=== PATIENT | female | born 1995 | race Caucasian/White ===

== ENCOUNTER 2020-05-16 17:44 | Emergency (ER) | payer MEDICAID | END 2020-05-16 17:45 | disposition left against medical advice (07) | LOC: EDH 17:44 | DX: Z53.21 Procedure and treatment not carried out due to patient leaving prior to being seen by health care provider (principal) ==

== ENCOUNTER 2020-05-20 23:31 | Emergency (ER) | payer MEDICAID ==
[2020-05-21 01:05] LABS: BASOPHILS % (AUTO) 0.2 % (0.0-5.0); EOSINOPHILS % (AUTO) 1.6 % (0.0-8.0); LYMPHOCYTES % (AUTO) 41.1 % (21.0-51.0); MEAN CORPUSCULAR HEMOGLOBIN 24.4 pg (27.0-33.0); MEAN CORPUSCULAR HGB CONC 31.3 g/dL (32.0-36.0); MEAN CORPUSCULAR VOLUME 78.1 fL (79-99); MONOCYTES % (AUTO) 5.4 % (3.0-13.0); NEUTROPHILS % (AUTO) 51.5 % (40.0-77.0); PLATELET COUNT (AUTO) 374 K/uL (130-400); RED BLOOD CELL COUNT(AUTO) 3.97 MIL/uL (4.00-5.50); WHITE BLOOD COUNT (AUTO) 8.2 K/uL (4.8-10.8)
[2020-05-21] MEDS ORDERED: VANCOMYCIN 1GM+NS 250ML 250 ML IV ONE (01:10)
[2020-05-21] MEDS ORDERED: ZOSYN 3.375GM+NS 50ML 50 ML IV ONE (01:10)
[2020-05-21] MEDS ORDERED: HYDROMORPHONE 1 MG/1 ML AMP ONE ×2 (01:10→01:54)
[2020-05-21 01:26] LABS: CREATININE 0.6 mg/dL (0.5-1.5)
[2020-05-21 01:29] LABS: ALBUMIN 3.3 g/dL (3.5-5.0); BILIRUBIN,TOTAL 0.4 mg/dL (0.2-1.0); TOTAL PROTEIN, SERUM 7.2 g/dL (6.0-8.3)
[2020-05-21 01:36] LABS: PLATELET MORPHOLOGY LARGE PLTS PRESENT
[2020-05-21] MEDS ORDERED: HYDROCODONE/ACETAMINOPHEN 5/325 MG TAB ONE (01:54)
== END 2020-05-21 02:57 | disposition home or self-care (01) ==
LOC: EDH 23:31
DX: L08.9 Local infection of the skin and subcutaneous tissue, unspecified (principal); J45.909 Unspecified asthma, uncomplicated; E03.9 Hypothyroidism, unspecified; Z88.1 Allergy status to other antibiotic agents
CPT/HCPCS: 36415; 80053; 83605; 85025; 87040; 96365; 96367; 96375; 99284; J1170 ×2; J2543; J3370

== ENCOUNTER 2020-05-22 14:04 | Emergency (ER) | payer MEDICAID | END 2020-05-22 16:20 | disposition left against medical advice (07) | LOC: EDH 14:04 | DX: M79.604 Pain in right leg (principal); J45.909 Unspecified asthma, uncomplicated; E03.9 Hypothyroidism, unspecified; Z88.1 Allergy status to other antibiotic agents; Z53.21 Procedure and treatment not carried out due to patient leaving prior to being seen by health care provider | CPT/HCPCS: 93005 ==

== ENCOUNTER 2023-04-17 10:41 | Inpatient (IN) | payer MEDICAID ==
[~2023-04-17] VITALS: Ht 167.6 cm; Wt 166.8 kg
[~2023-04-17 10:41] MED LIST: AMMO385C4 TP; CARV3.1262 PO; DULO30CA2 PO; FLUC150T48 PO; GABA300C PO; LEVO750T39 PO; LOSA25TA41 PO; Terbinafine Hcl TP
[2023-04-17 11:47] LABS: BASOPHILS # (AUTO) 0.06 K/uL (0.00-0.20); BASOPHILS % (AUTO) 0.3 % (0.0-5.0); HEMATOCRIT 33.6 % (36-48); IMMATURE GRANULOCYTE ABSOLUTE 0.13 K/uL (0-1); LYMPHOCYTES # (AUTO) 2.5 K/uL (1.0-4.8); LYMPHOCYTES % (AUTO) 11.9 % (21.0-51.0); MEAN CORPUSCULAR HEMOGLOBIN 28.6 pg (27.0-33.0); MEAN CORPUSCULAR HGB CONC 33.3 g/dL (32.0-36.0); MEAN CORPUSCULAR VOLUME 85.9 fL (79-99); MONOCYTES # (AUTO) 0.5 K/uL (0.1-1.0); MONOCYTES % (AUTO) 2.5 % (3.0-13.0); NEUTROPHILS # (AUTO) 17.7 K/uL (1.8-7.7); NEUTROPHILS % (AUTO) 84.7 % (40.0-77.0); PLATELET COUNT (AUTO) 330 K/uL (130-400); RED BLOOD CELL COUNT(AUTO) 3.91 MIL/uL (4.00-5.50); RED CELL DISTRIBUTION WIDTH 14.7 % (11.0-15.5); WHITE BLOOD COUNT (AUTO) 20.9 K/uL (4.8-10.8)
[2023-04-17] MEDS ORDERED: 0.9%NACL 1000ML 1,000 ML IV ONE (12:00)
[2023-04-17] MEDS ORDERED: ONDANSETRON 4MG INJ IVP ONE ×3 (12:00→14:30)
[2023-04-17 12:05] LABS: ALBUMIN 3.1 g/dL (3.5-5.0); BILIRUBIN,TOTAL 2.6 mg/dL (0.2-1.0); CREATININE 1.2 mg/dL (0.5-1.5); TOTAL PROTEIN, SERUM 7.5 g/dL (6.0-8.3)
[2023-04-17 12:38] LABS: POTASSIUM 2.8 mmol/L (3.5-5.1)
[2023-04-17] MEDS ORDERED: POTASSIUM CHLORIDE 20MEQ/100ML 100 ML IV ONE (14:00)
[2023-04-17] MEDS ORDERED: ZOSYN 3.375GM +NS 50ML IV ONE (14:00)
[2023-04-17] MEDS ORDERED: MORPHINE 4 MG SYG IM ONE (14:00)
[2023-04-17] MEDS ORDERED: VANCOMYCIN KIT 1 GM/250 ML IV.KIT IV ONE (14:00)
[2023-04-17] MEDS ORDERED: MORPHINE 4 MG SYG IVP ONE (14:30)
[2023-04-17] MEDS ORDERED: NACL 0.9% IV ONE (15:00)
[2023-04-17] MEDS ORDERED: VANCOMYCIN PROTOCOL PER PHARMACY IV SCH (15:00)
[2023-04-17] MEDS ORDERED: VANCOMYCIN IV ONE (15:00)
[2023-04-17] MEDS ORDERED: KCL 20 MEQ ERTAB PO ONE (15:30)
[2023-04-17] MEDS ORDERED: LIDOCAINE HCL 1% 20 ML VIAL ONE (15:37)
[2023-04-17] MEDS: ONDANSETRON 4MG INJ IVP PRN ×2 (16:07→22:04)
[2023-04-17] MEDS: 0.9%NACL 1000ML 1,000 ML IV SCH (16:37)
[2023-04-17] MEDS: MORPHINE 2 MG SYG IVP PRN (18:53)
[2023-04-17] MEDS: ACETAMINOPHEN 500 MG TABLET PO PRN (22:05)
[2023-04-17] MEDS ORDERED: 0.9%NACL 50ML IV SCH (22:30)
[2023-04-17] MEDS ORDERED: ZOSYN 3.375GM +NS 50ML IVPB SCH (22:30)
[2023-04-17 22:51] LABS: APPEARANCE,URINE CLOUDY (CLEAR); BILIRUBIN,URINE NEGATIVE (NEGATIVE); COLOR,URINE YELLOW (YELLOW); GLUCOSE, URINE (UA) NEGATIVE (NEGATIVE); KETONES,URINE NEGATIVE (NEGATIVE); LEUKOCYTE ESTERASE ,URINE 25 Leu/uL (NEGATIVE); NITRATE,URINE NEGATIVE (NEGATIVE); OCCULT BLOOD,URINE NEGATIVE (NEGATIVE); PH,URINE 5.5 (5.0-8.0); PROTEIN,URINE 30 mg/dL (NEGATIVE); UROBILINOGEN,URINE 0.2 mg/dL (0.2-1.0)
[2023-04-17 22:53] LABS: ADD UA MICROSCOPIC YES
[2023-04-17 22:54] LABS: BACTERIA,URINE RARE /HPF (None Seen); HCG,QUALITATIVE URINE NEGATIVE (NEGATIVE); MUCUS,URINE RARE LPF (None Seen); SQUAMOUS EPITHELIAL CELL,UR MANY /HPF (0-2); UNCLASSIFIED CRYSTAL 1 /HPF (None Seen)
[2023-04-17 23:15] VITALS: TEMP 102.7
[2023-04-17] MEDS ORDERED: KETOROLAC 30MG VIAL (30MG/ML) IVP ONE (23:30)
[2023-04-17] MEDS ORDERED: MORPHINE 2 MG SYG IVP ONE (23:30)
[2023-04-18] MEDS: 0.9%NACL 1000ML 1,000 ML IV SCH ×2 (00:51→13:32)
[2023-04-18] MEDS: MORPHINE 2 MG SYG IVP PRN ×3 (05:30→23:24)
[2023-04-18] MEDS ORDERED: VANCOMYCIN 1.5 GM/250 ML BAG 250 ML IV SCH (06:00)
[2023-04-18] MEDS: ONDANSETRON 4MG INJ IVP PRN ×2 (07:05→10:14)
[2023-04-18 07:21] LABS: BASOPHILS # (AUTO) 0.05 K/uL (0.00-0.20); BASOPHILS % (AUTO) 0.3 % (0.0-5.0); EOSINOPHILS # (AUTO) 0.04 K/uL (0.00-0.70); EOSINOPHILS % (AUTO) 0.2 % (0.0-8.0); HEMATOCRIT 31.3 % (36-48); IMMATURE GRANULOCYTE ABSOLUTE 0.09 K/uL (0-1); LYMPHOCYTES # (AUTO) 2.1 K/uL (1.0-4.8); LYMPHOCYTES % (AUTO) 11.4 % (21.0-51.0); MEAN CORPUSCULAR HGB CONC 31.9 g/dL (32.0-36.0); MEAN CORPUSCULAR VOLUME 87.7 fL (79-99); MONOCYTES # (AUTO) 0.6 K/uL (0.1-1.0); MONOCYTES % (AUTO) 3.3 % (3.0-13.0); NEUTROPHILS # (AUTO) 15.3 K/uL (1.8-7.7); NEUTROPHILS % (AUTO) 84.3 % (40.0-77.0); PLATELET COUNT (AUTO) 328 K/uL (130-400); RED BLOOD CELL COUNT(AUTO) 3.57 MIL/uL (4.00-5.50); RED CELL DISTRIBUTION WIDTH 14.6 % (11.0-15.5); WHITE BLOOD COUNT (AUTO) 18.2 K/uL (4.8-10.8)
[2023-04-18 07:25] LABS: MAGNESIUM 1.5 mg/dL (1.80-2.40); POTASSIUM 3.1 mmol/L (3.5-5.1)
[2023-04-18] MEDS ORDERED: KCL 20 MEQ ERTAB PO ONE (08:00)
[2023-04-18] MEDS ORDERED: MAGNESIUM 2GM PREMIX 50ML 50 ML IV PRN (08:30)
[2023-04-18 08:36] LABS: INR 1.08 (0.85-1.15); PROTHROMBIN TIME 12.5 SEC (9.6-11.6)
[2023-04-18 08:37] LABS: PARTIAL THROMBOPLASTIN TIME 35.2 SEC (26.3-35.5)
[2023-04-18] MEDS: ENOXAPARIN SODIUM 40 MG/0.4 ML SYRINGE SQ SCH (09:47)
[2023-04-18] MEDS: LINEZOLID 600 MG/ISO-OSM 300 ML IV SCH ×2 (10:00→23:23)
[2023-04-18] MEDS: CEFEPIME HCL 1 GM VIAL IVPB SCH ×2 (11:58→23:22)
[2023-04-18] MEDS ORDERED: HYDR4 PO (12:29)
[2023-04-18] MEDS: PROMETHAZINE HCL 25 MG/ML 1ML AMPULE IM PRN (13:32)
[2023-04-18 14:01] LABS: CREATININE,URINE RANDOM 174 mg/dL (30-135); SODIUM,URINE RANDOM 43 mmol/l (40-220)
[2023-04-18 15:29] LABS: ALBUMIN 2.5 g/dL (3.5-5.0); BILIRUBIN,DIRECT 0.3 mg/dL (0.0-0.3); BILIRUBIN,TOTAL 1.5 mg/dL (0.2-1.0); CREATININE 2.1 mg/dL (0.5-1.5); POTASSIUM 3.2 mmol/L (3.5-5.1); TOTAL PROTEIN, SERUM 6.8 g/dL (6.0-8.3)
[2023-04-18 16:50] VITALS: BP 147/61; PULSE 86; RESP 20
[2023-04-18] MEDS ORDERED: HONEY 1 APPL/ML TUBE TP SCH (17:00)
[2023-04-18 20:36] VITALS: BP 135/72; PULSE 103; RESP 18
[2023-04-18 23:29] VITALS: BP 141/76; PULSE 104; RESP 20
[2023-04-19] VITALS (7 sets, daily range): BP systolic 108–147; BP diastolic 56–80; PULSE 98–103; RESP 18–22; O2SAT 96
[2023-04-19] MEDS: MORPHINE 2 MG SYG IVP PRN ×4 (05:32→20:36)
[2023-04-19] MEDS: 0.9%NACL 1000ML 1,000 ML IV SCH ×2 (05:42→10:56)
[2023-04-19 05:44] LABS: BASOPHILS # (AUTO) 0.01 K/uL (0.00-0.20); BASOPHILS % (AUTO) 0.1 % (0.0-5.0); EOSINOPHILS # (AUTO) 0.06 K/uL (0.00-0.70); EOSINOPHILS % (AUTO) 0.5 % (0.0-8.0); HEMATOCRIT 30.1 % (36-48); IMMATURE GRANULOCYTE ABSOLUTE 0.04 K/uL (0-1); LYMPHOCYTES # (AUTO) 1.6 K/uL (1.0-4.8); LYMPHOCYTES % (AUTO) 14.1 % (21.0-51.0); MEAN CORPUSCULAR HEMOGLOBIN 28.6 pg (27.0-33.0); MEAN CORPUSCULAR HGB CONC 32.6 g/dL (32.0-36.0); MEAN CORPUSCULAR VOLUME 87.8 fL (79-99); MONOCYTES # (AUTO) 0.4 K/uL (0.1-1.0); MONOCYTES % (AUTO) 3.4 % (3.0-13.0); NEUTROPHILS # (AUTO) 9.5 K/uL (1.8-7.7); NEUTROPHILS % (AUTO) 81.6 % (40.0-77.0); PLATELET COUNT (AUTO) 301 K/uL (130-400); RED BLOOD CELL COUNT(AUTO) 3.43 MIL/uL (4.00-5.50); RED CELL DISTRIBUTION WIDTH 14.6 % (11.0-15.5); WHITE BLOOD COUNT (AUTO) 11.6 K/uL (4.8-10.8)
[2023-04-19 06:14] LABS: CREATININE 2.2 mg/dL (0.5-1.5); MAGNESIUM 2.1 mg/dL (1.80-2.40); POTASSIUM 3.2 mmol/L (3.5-5.1)
[2023-04-19] MEDS ORDERED: KCL 20 MEQ ERTAB PO ONE (07:30)
[2023-04-19] MEDS: LINEZOLID 600 MG/ISO-OSM 300 ML IV SCH ×2 (10:59→22:13)
[2023-04-19] MEDS: CEFEPIME HCL 1 GM VIAL IVPB SCH ×2 (11:00→23:59)
[2023-04-19] MEDS: PROMETHAZINE HCL 25 MG/ML 1ML AMPULE IM PRN (11:03)
[2023-04-19] MEDS: ENOXAPARIN SODIUM 40 MG/0.4 ML SYRINGE SQ SCH (11:26)
[2023-04-19] MEDS ORDERED: LEVO75TA4 PO (15:57)
[2023-04-19 16:24] LABS: INR 0.94 (0.85-1.15); PROTHROMBIN TIME 10.9 SEC (9.6-11.6)
[2023-04-19 16:26] LABS: PARTIAL THROMBOPLASTIN TIME 32.1 SEC (26.3-35.5)
[2023-04-19] MEDS: ONDANSETRON 4MG INJ IVP PRN (22:16)
[2023-04-20] VITALS (8 sets, daily range): BP systolic 115–137; BP diastolic 69–86; PULSE 87–105; RESP 17–20; O2SAT 93–96
[2023-04-20] MEDS: MORPHINE 2 MG SYG IVP PRN ×5 (04:48→21:38)
[2023-04-20 05:14] LABS: BASOPHILS # (AUTO) 0.01 K/uL (0.00-0.20); BASOPHILS % (AUTO) 0.1 % (0.0-5.0); EOSINOPHILS # (AUTO) 0.12 K/uL (0.00-0.70); EOSINOPHILS % (AUTO) 1.5 % (0.0-8.0); HEMATOCRIT 31.6 % (36-48); IMMATURE GRANULOCYTE ABSOLUTE 0.02 K/uL (0-1); LYMPHOCYTES % (AUTO) 24.1 % (21.0-51.0); MEAN CORPUSCULAR HEMOGLOBIN 28.2 pg (27.0-33.0); MEAN CORPUSCULAR VOLUME 90.8 fL (79-99); MONOCYTES # (AUTO) 0.5 K/uL (0.1-1.0); MONOCYTES % (AUTO) 6.3 % (3.0-13.0); NEUTROPHILS # (AUTO) 5.5 K/uL (1.8-7.7); NEUTROPHILS % (AUTO) 67.8 % (40.0-77.0); PLATELET COUNT (AUTO) 354 K/uL (130-400); RED BLOOD CELL COUNT(AUTO) 3.48 MIL/uL (4.00-5.50); RED CELL DISTRIBUTION WIDTH 14.7 % (11.0-15.5); WHITE BLOOD COUNT (AUTO) 8.1 K/uL (4.8-10.8)
[2023-04-20 05:53] LABS: ALBUMIN 2.5 g/dL (3.5-5.0); BILIRUBIN,TOTAL 0.4 mg/dL (0.2-1.0); MAGNESIUM 2.2 mg/dL (1.80-2.40); PHOSPHORUS 3.6 mg/dL (2.5-4.9); POTASSIUM 3.9 mmol/L (3.5-5.1); TOTAL PROTEIN, SERUM 6.9 g/dL (6.0-8.3)
[2023-04-20] MEDS: ENOXAPARIN SODIUM 40 MG/0.4 ML SYRINGE SQ SCH (08:53)
[2023-04-20] MEDS: LINEZOLID 600 MG/ISO-OSM 300 ML IV SCH ×2 (08:53→22:17)
[2023-04-20] MEDS ORDERED: LEVOTHYROXINE 75 MCG TABLET PO SCH (09:00)
[2023-04-20] MEDS: CEFEPIME HCL 1 GM VIAL IVPB SCH ×2 (11:17→21:37)
[2023-04-20] MEDS ORDERED: HYDROMORPHONE HCL 2 MG PO PRN (11:30)
[2023-04-20] MEDS ORDERED: HYDROMORPHONE HCL 2 MG TAB PO PRN (12:00)
[2023-04-20] MEDS: ONDANSETRON 4MG INJ IVP PRN ×2 (12:41→18:40)
[2023-04-20] MEDS ORDERED: COMPOUND IV MISC 1 EACH IVSOLN MISC PRN (13:30)
[2023-04-20] MEDS ORDERED: IRON SUCROSE COMPLEX 300 MG in 0.9% NACL 250ML 250 ML IV ONE (21:00)
[2023-04-21] VITALS (8 sets, daily range): BP systolic 85–159; BP diastolic 63–91; PULSE 90–98; RESP 18–50; O2SAT 92–94
[2023-04-21] MEDS: ONDANSETRON 4MG INJ IVP PRN ×3 (01:40→18:17)
[2023-04-21] MEDS: MORPHINE 2 MG SYG IVP PRN ×5 (01:41→22:10)
[2023-04-21 05:33] LABS: BASOPHILS # (AUTO) 0.03 K/uL (0.00-0.20); BASOPHILS % (AUTO) 0.5 % (0.0-5.0); EOSINOPHILS # (AUTO) 0.13 K/uL (0.00-0.70); HEMATOCRIT 31.9 % (36-48); IMMATURE GRANULOCYTE ABSOLUTE 0.03 K/uL (0-1); LYMPHOCYTES # (AUTO) 1.9 K/uL (1.0-4.8); LYMPHOCYTES % (AUTO) 29.5 % (21.0-51.0); MEAN CORPUSCULAR HEMOGLOBIN 28.1 pg (27.0-33.0); MEAN CORPUSCULAR HGB CONC 30.4 g/dL (32.0-36.0); MEAN CORPUSCULAR VOLUME 92.5 fL (79-99); MONOCYTES # (AUTO) 0.4 K/uL (0.1-1.0); MONOCYTES % (AUTO) 6.2 % (3.0-13.0); NEUTROPHILS % (AUTO) 61.3 % (40.0-77.0); PLATELET COUNT (AUTO) 367 K/uL (130-400); RED BLOOD CELL COUNT(AUTO) 3.45 MIL/uL (4.00-5.50); RED CELL DISTRIBUTION WIDTH 14.6 % (11.0-15.5); WHITE BLOOD COUNT (AUTO) 6.6 K/uL (4.8-10.8)
[2023-04-21] MEDS: HYDROMORPHONE HCL 2 MG TAB PO PRN (05:38)
[2023-04-21 06:02] LABS: BILIRUBIN,TOTAL 0.3 mg/dL (0.2-1.0); CREATININE 1.8 mg/dL (0.5-1.5); POTASSIUM 3.6 mmol/L (3.5-5.1); TOTAL PROTEIN, SERUM 7.1 g/dL (6.0-8.3)
[2023-04-21 06:22] LABS: ALBUMIN 2.3 g/dL (3.5-5.0)
[2023-04-21] MEDS: LEVOTHYROXINE 75 MCG TABLET PO SCH (06:22)
[2023-04-21] MEDS: ENOXAPARIN SODIUM 40 MG/0.4 ML SYRINGE SQ SCH (08:53)
[2023-04-21] MEDS: LINEZOLID 600 MG/ISO-OSM 300 ML IV SCH ×2 (10:29→22:09)
[2023-04-21] MEDS: CEFEPIME HCL 1 GM VIAL IVPB SCH ×2 (10:29→21:10)
[2023-04-21] MEDS ORDERED: IRON SUCROSE COMPLEX 300 MG in 0.9% NACL 250ML 250 ML IV ONE (21:00)
[2023-04-21] MEDS: PROMETHAZINE HCL 25 MG/ML 1ML AMPULE IM PRN (22:10)
[2023-04-22] VITALS (7 sets, daily range): BP systolic 132–162; BP diastolic 68–96; PULSE 88–93; RESP 17–20; O2SAT 94–96
[2023-04-22] MEDS: MORPHINE 2 MG SYG IVP PRN ×6 (02:03→23:35)
[2023-04-22] MEDS: ONDANSETRON 4MG INJ IVP PRN ×2 (02:53→21:41)
[2023-04-22 05:36] LABS: BASOPHILS # (AUTO) 0.02 K/uL (0.00-0.20); BASOPHILS % (AUTO) 0.3 % (0.0-5.0); EOSINOPHILS # (AUTO) 0.17 K/uL (0.00-0.70); EOSINOPHILS % (AUTO) 2.5 % (0.0-8.0); HEMATOCRIT 28.4 % (36-48); IMMATURE GRANULOCYTE ABSOLUTE 0.06 K/uL (0-1); LYMPHOCYTES # (AUTO) 2.4 K/uL (1.0-4.8); LYMPHOCYTES % (AUTO) 34.9 % (21.0-51.0); MEAN CORPUSCULAR HEMOGLOBIN 27.5 pg (27.0-33.0); MEAN CORPUSCULAR HGB CONC 30.6 g/dL (32.0-36.0); MEAN CORPUSCULAR VOLUME 89.9 fL (79-99); MONOCYTES # (AUTO) 0.4 K/uL (0.1-1.0); MONOCYTES % (AUTO) 5.5 % (3.0-13.0); NEUTROPHILS # (AUTO) 3.8 K/uL (1.8-7.7); NEUTROPHILS % (AUTO) 55.9 % (40.0-77.0); PLATELET COUNT (AUTO) 406 K/uL (130-400); RED BLOOD CELL COUNT(AUTO) 3.16 MIL/uL (4.00-5.50); RED CELL DISTRIBUTION WIDTH 14.6 % (11.0-15.5); WHITE BLOOD COUNT (AUTO) 6.9 K/uL (4.8-10.8)
[2023-04-22 05:51] LABS: ALBUMIN 2.3 g/dL (3.5-5.0); BILIRUBIN,TOTAL 0.2 mg/dL (0.2-1.0); CREATININE 1.8 mg/dL (0.5-1.5); POTASSIUM 3.3 mmol/L (3.5-5.1); TOTAL PROTEIN, SERUM 6.9 g/dL (6.0-8.3)
[2023-04-22] MEDS: LEVOTHYROXINE 75 MCG TABLET PO SCH (06:00)
[2023-04-22] MEDS: ENOXAPARIN SODIUM 40 MG/0.4 ML SYRINGE SQ SCH (08:19)
[2023-04-22] MEDS: LINEZOLID 600 MG/ISO-OSM 300 ML IV SCH ×2 (09:37→20:41)
[2023-04-22] MEDS: CEFEPIME HCL 1 GM VIAL IVPB SCH ×2 (09:37→20:42)
[2023-04-22] MEDS ORDERED: POTASSIUM CHLORIDE 20MEQ/100ML 100 ML IV PRN (10:30)
[2023-04-22] MEDS ORDERED: POTASSIUM CHLORIDE 10% ELIXIR 20 MEQ/15 ML UDCUP PO PRN (10:30)
[2023-04-22] MEDS: FAMOTIDINE 20MG TAB PO SCH ×2 (10:35→20:41)
[2023-04-22] MEDS: KCL 20 MEQ ERTAB PO PRN ×2 (13:50→17:08)
[2023-04-23] VITALS (8 sets, daily range): BP systolic 119–150; BP diastolic 51–97; PULSE 61–94; RESP 14–20; O2SAT 96
[2023-04-23] MEDS: MORPHINE 2 MG SYG IVP PRN ×5 (04:44→22:31)
[2023-04-23 05:46] LABS: BASOPHILS # (AUTO) 0.03 K/uL (0.00-0.20); BASOPHILS % (AUTO) 0.5 % (0.0-5.0); EOSINOPHILS # (AUTO) 0.15 K/uL (0.00-0.70); EOSINOPHILS % (AUTO) 2.3 % (0.0-8.0); HEMATOCRIT 28.3 % (36-48); IMMATURE GRANULOCYTE ABSOLUTE 0.09 K/uL (0-1); LYMPHOCYTES # (AUTO) 2.3 K/uL (1.0-4.8); LYMPHOCYTES % (AUTO) 34.8 % (21.0-51.0); MEAN CORPUSCULAR HEMOGLOBIN 28.6 pg (27.0-33.0); MEAN CORPUSCULAR HGB CONC 31.1 g/dL (32.0-36.0); MEAN CORPUSCULAR VOLUME 91.9 fL (79-99); MONOCYTES # (AUTO) 0.3 K/uL (0.1-1.0); MONOCYTES % (AUTO) 4.9 % (3.0-13.0); NEUTROPHILS # (AUTO) 3.7 K/uL (1.8-7.7); NEUTROPHILS % (AUTO) 56.1 % (40.0-77.0); PLATELET COUNT (AUTO) 388 K/uL (130-400); RED BLOOD CELL COUNT(AUTO) 3.08 MIL/uL (4.00-5.50); RED CELL DISTRIBUTION WIDTH 14.4 % (11.0-15.5); WHITE BLOOD COUNT (AUTO) 6.6 K/uL (4.8-10.8)
[2023-04-23 06:03] LABS: CREATININE 1.6 mg/dL (0.5-1.5); POTASSIUM 3.4 mmol/L (3.5-5.1)
[2023-04-23 06:11] LABS: ALBUMIN 2.3 g/dL (3.5-5.0); BILIRUBIN,TOTAL 0.2 mg/dL (0.2-1.0); TOTAL PROTEIN, SERUM 6.5 g/dL (6.0-8.3)
[2023-04-23 07:09] LABS: ERYTHROCYTE SEDIMENTATION RATE 86 MM/HR (0-20)
[2023-04-23] MEDS: LEVOTHYROXINE 75 MCG TABLET PO SCH (07:17)
[2023-04-23] MEDS: ENOXAPARIN SODIUM 40 MG/0.4 ML SYRINGE SQ SCH (09:18)
[2023-04-23] MEDS: LINEZOLID 600 MG/ISO-OSM 300 ML IV SCH (09:18)
[2023-04-23] MEDS: CEFEPIME HCL 1 GM VIAL IVPB SCH (09:19)
[2023-04-23] MEDS: KCL 20 MEQ ERTAB PO PRN ×2 (09:19→12:46)
[2023-04-23] MEDS: CEFAZOLIN SODIUM 2 GM VIAL IVPB SCH ×2 (13:03→20:53)
[2023-04-23] MEDS: FAMOTIDINE 20MG TAB PO SCH (20:54)
[2023-04-23] MEDS: ACETAMINOPHEN 500 MG TABLET PO PRN (21:02)
[2023-04-24 00:10] VITALS: BP 160/98; PULSE 94; RESP 20
[2023-04-24] MEDS: CEFAZOLIN SODIUM 2 GM VIAL IVPB SCH ×3 (02:54→21:19)
[2023-04-24] MEDS: ACETAMINOPHEN 500 MG TABLET PO PRN (02:55)
[2023-04-24] MEDS: MORPHINE 2 MG SYG IVP PRN ×3 (02:55→12:35)
[2023-04-24 04:22] VITALS: BP 143/85; PULSE 83; RESP 20
[2023-04-24 06:14] LABS: BASOPHILS # (AUTO) 0.03 K/uL (0.00-0.20); BASOPHILS % (AUTO) 0.5 % (0.0-5.0); EOSINOPHILS # (AUTO) 0.13 K/uL (0.00-0.70); EOSINOPHILS % (AUTO) 2.2 % (0.0-8.0); HEMATOCRIT 29.4 % (36-48); IMMATURE GRANULOCYTE ABSOLUTE 0.09 K/uL (0-1); LYMPHOCYTES # (AUTO) 2.3 K/uL (1.0-4.8); LYMPHOCYTES % (AUTO) 38.4 % (21.0-51.0); MEAN CORPUSCULAR HEMOGLOBIN 27.6 pg (27.0-33.0); MEAN CORPUSCULAR HGB CONC 30.3 g/dL (32.0-36.0); MONOCYTES # (AUTO) 0.3 K/uL (0.1-1.0); MONOCYTES % (AUTO) 4.7 % (3.0-13.0); NEUTROPHILS # (AUTO) 3.2 K/uL (1.8-7.7); NEUTROPHILS % (AUTO) 52.7 % (40.0-77.0); PLATELET COUNT (AUTO) 409 K/uL (130-400); RED BLOOD CELL COUNT(AUTO) 3.23 MIL/uL (4.00-5.50); RED CELL DISTRIBUTION WIDTH 14.3 % (11.0-15.5)
[2023-04-24] MEDS: LEVOTHYROXINE 75 MCG TABLET PO SCH (06:23)
[2023-04-24] MEDS: ONDANSETRON 4MG INJ IVP PRN (06:26)
[2023-04-24 06:41] LABS: ALBUMIN 2.4 g/dL (3.5-5.0); BILIRUBIN,TOTAL 0.1 mg/dL (0.2-1.0); CREATININE 1.6 mg/dL (0.5-1.5); POTASSIUM 3.5 mmol/L (3.5-5.1); TOTAL PROTEIN, SERUM 6.7 g/dL (6.0-8.3)
[2023-04-24 08:00] VITALS: BP 147/91; PULSE 81; RESP 20; O2SAT 96
[2023-04-24] MEDS: ENOXAPARIN SODIUM 40 MG/0.4 ML SYRINGE SQ SCH (08:03)
[2023-04-24 12:00] VITALS: BP 150/80; PULSE 77; RESP 18
[2023-04-24 16:00] VITALS: BP_SYST 184; BP_DIAS 102; BP_DIAS 65; PULSE 78; RESP 20
[2023-04-24] MEDS: HYDROMORPHONE HCL 2 MG TAB PO PRN ×2 (18:03→22:04)
[2023-04-24 20:00] VITALS: BP 146/86; PULSE 80; RESP 20; O2SAT 96
[2023-04-24] MEDS: FAMOTIDINE 20MG TAB PO SCH (21:19)
[2023-04-25] VITALS: BP 154/102; PULSE 78; RESP 20
[2023-04-25] MEDS: ACETAMINOPHEN 500 MG TABLET PO PRN (00:07)
[2023-04-25] MEDS: HYDROMORPHONE HCL 2 MG TAB PO PRN ×2 (02:59→08:22)
[2023-04-25] MEDS: CEFAZOLIN SODIUM 2 GM VIAL IVPB SCH (03:02)
[2023-04-25 03:49] VITALS: BP 145/85; PULSE 86; RESP 20
[2023-04-25] MEDS: LEVOTHYROXINE 75 MCG TABLET PO SCH (05:55)
[2023-04-25 06:26] LABS: HEMATOCRIT 31.3 % (36-48); MEAN CORPUSCULAR HGB CONC 31.6 g/dL (32.0-36.0); MEAN CORPUSCULAR VOLUME 88.4 fL (79-99); RED BLOOD CELL COUNT(AUTO) 3.54 MIL/uL (4.00-5.50); RED CELL DISTRIBUTION WIDTH 14.3 % (11.0-15.5); WHITE BLOOD COUNT (AUTO) 5.7 K/uL (4.8-10.8)
[2023-04-25 06:47] LABS: ALBUMIN 2.8 g/dL (3.5-5.0); BILIRUBIN,TOTAL 0.2 mg/dL (0.2-1.0); CREATININE 1.4 mg/dL (0.5-1.5); POTASSIUM 3.6 mmol/L (3.5-5.1); TOTAL PROTEIN, SERUM 7.5 g/dL (6.0-8.3)
[2023-04-25 08:00] VITALS: BP 146/89; PULSE 82; RESP 18; O2SAT 93
[2023-04-25] MEDS: ENOXAPARIN SODIUM 40 MG/0.4 ML SYRINGE SQ SCH (08:22)
[2023-04-25 12:00] VITALS: BP 154/64; PULSE 95; RESP 20
== END 2023-04-25 13:15 | disposition home or self-care (01) | DRG 720 ==
LOC: EEVIPCON 10:41 → EDH 10:41 → EDHIP 10:42 → WSH 04-18 12:49 → EDHIP 04-18 13:06 → 3BH 04-18 16:50
PROVIDERS: ADMIT Internal Medicine; ATTEND Internal Medicine
DX: A41.9 Sepsis, unspecified organism (principal); N17.0 Acute kidney failure with tubular necrosis; E43 Unspecified severe protein-calorie malnutrition; I13.10 Hypertensive heart and chronic kidney disease without heart failure, with stage 1 through stage 4 chronic kidney disease, or unspecified chronic kidney disease; L03.115 Cellulitis of right lower limb; Z68.43 Body mass index [BMI] 50.0-59.9, adult; E66.01 Morbid (severe) obesity due to excess calories; R65.20 Severe sepsis without septic shock; N18.9 Chronic kidney disease, unspecified; N39.0 Urinary tract infection, site not specified; E87.6 Hypokalemia; D64.9 Anemia, unspecified; B96.1 Klebsiella pneumoniae [K. pneumoniae] as the cause of diseases classified elsewhere; L97.919 Non-pressure chronic ulcer of unspecified part of right lower leg with unspecified severity; E03.9 Hypothyroidism, unspecified; F43.10 Post-traumatic stress disorder, unspecified; E80.6 Other disorders of bilirubin metabolism; I25.10 Atherosclerotic heart disease of native coronary artery without angina pectoris; J45.909 Unspecified asthma, uncomplicated; Z74.01 Bed confinement status; Z86.711 Personal history of pulmonary embolism; Z86.718 Personal history of other venous thrombosis and embolism
CPT/HCPCS: 36415; 73590; 73630; 76770; 80048; 80053; 80076; 81001; 81025; 82550; 82570; 82728; 83036; 83540; 83550; 83605; 83735; 84100; 84145; 84300; 84443; 84484; 85025; 85027; 85610; 85651; 85730; 86140; 87040; 87070; 87076; 87077; 87088; 87186; 93005; 93970; C1894; G0378; J0692; J1650; J1756; J1885; J2020; J2270; J2405; J2543; J2550; J3370; J3475; J3480; J7030; J7040; J7050; C1750; J0690